=== PATIENT | male | born 1945 | race Caucasian/White ===

== ENCOUNTER 2016-07-13 10:51 | Day surgery (SDC) | payer OTHER ==
[2016-07-09 08:25] LABS: BASOPHILS 0.1 %; BASOPHILS ABSOLUTE 0.01 10/3/uL (0.0-0.16); EOSINOPHILS 2.9 %; EOSINOPHILS ABSOLUTE 0.22 10/3/uL (0.0-0.53); HEMATOCRIT 41.7 % (40.0-51.0); HEMOGLOBIN 13.7 g/dL (13.6-17.8); IMMATURE GRANULOCYTES 0.1 %; IMMATURE GRANULOCYTES ABSOLUTE 0.01 10/3/uL (0.0-0.11); LYMPHOCYTES 21.4 %; LYMPHOCYTES ABSOLUTE 1.62 10/3/uL (0.67-4.30); MEAN CORPUS HGB CONC 32.9 g/dL (32.0-36.0); MEAN CORPUSCULAR HEMOGLOB 30.6 pg (26.0-34.0); MEAN CORPUSCULAR VOLUME 93.1 fL (80-100); MEAN PLATELET VOLUME 12.2 fL (9.2-13.0); MONOCYTES 8.6 %; MONOCYTES ABSOLUTE 0.65 10/3/uL (0.21-1.20); NEUTROPHILS 66.9 %; NEUTROPHILS ABSOLUTE 5.06 10/3/uL (2.02-8.40); PLATELET COUNT 168 10/3/uL (150-400); RBC DISTRIBUTION WIDTH 14.4 % (12.0-16.0); RED CELL COUNT 4.48 10/6/uL (4.7-6.1); WHITE BLOOD CELLS 7.6 10/3/uL (4.5-10.5)
[2016-07-09 08:26] LABS: MANUAL DIFF NO %
[2016-07-09 08:40] LABS: BUN (BLOOD UREA NITROGEN) 23 MG/DL (6-23); CALCIUM, SERUM 8.3 MG/DL (8.5-10.4); CHLORIDE, SERUM 104 MMOL/L (96-112); CO2 (CARBON DIOXIDE) 30 MMOL/L (24-34); CREATININE 1.83 MG/DL (0.70-1.30); GFR AFRICAN AMERICAN 43 ML/MIN (>=60); GFR NON AFRICAN AMERICAN 37 ML/MIN (>=60); GLUCOSE, SERUM 109 MG/DL (60-99); POTASSIUM, SERUM 4.3 MMOL/L (3.5-5.3); SODIUM, SERUM 141 MMOL/L (135-148)
[2016-07-09 09:03] LABS: ASCORBIC ACID (UR NOT ORDER) NEG (NEG); BILIRUBIN, URINE NEGATIVE (NEG); KETONE, URINE NEGATIVE (NEG); LEUKOCYTE ESTERASE(NOT OR SMALL (NEG); WBC (NOT ORDERED) (RFLEX) 9 (0-5)
--- NOTE | ~2016-07-13 | OP ---
Record Of Operation [facility] [address] [place]. [address] NAME: RENA DILLON : 47 STATUS : [facility]#: [id number] AGE: 70 ADM/REG DATE : 07/13/16 MR#: [id number] REPORT SERV DATE: 07/14/16 DICTATED BY: MARCELL MOREIRA III DATE: 07/13/16 REPORT STATUS : Draft TRANSCRIBED BY: MODL DATE: 07/13/16 DATE OF PROCEDURE: 07/13/2016 PROCEDURE: Cystoscopy, dilatation of urethral stricture, and urethral biopsies. PREOPERATIVE DIAGNOSIS: Urethral stricture and squamous changes in the urethra. POSTOPERATIVE DIAGNOSIS: Urethral stricture and squamous changes in the urethra. ANESTHESIA: General. SURGEON: Marcell Moreira M.D. DESCRIPTION OF PROCEDURE: Following induction of adequate general anesthesia, the patient was placed in dorsal position, prepped and draped in a sterile fashion. The urethra was examined and was normal until I reached the bulbous urethra, which there was a circumferential layer of dense whitish plaque and a very small urethra. I was able to negotiate this with a ureteroscope. It was quite short and did not really involve the membranous urethra as best I could visualize it. The prostate was enlarged with an enlarged median lobe. The bladder was, on fluoro, very full with contrast from his recent CT chest study. I placed a wire and dilated the stricture up to 26 with [place] sounds. The scope was then placed, and the bladder was filled and inspected with both 30 and 70 degree lenses. No tumors were noted. There were some trabeculations from shallow cellules. With the bladder fully distended, it was hard to actually reach the dome, so was examined and is less than distended state. The papillary tumors were noted nor any stone seen. After examining the prostate with a 30 degree and 70 degree lens, I put in a 20-[place] sheath, did two biopsies of the urethra, and there was very little bleeding. Next, an 18-[place]ic [place] tip was placed in the bladder. Minimal bleeding was noted. 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 The patient will have a catheter with a leg bag and come to the office in 72 hours for catheter removal. The patient did have a CT chest to explain a right lung nodule and the study showed a small sclerotic area in the right fifth rib that accounted for the nodular density on the chest film. The lungs are clear. There was no evidence of malignancy. OB/MODL Marcell Moreira III, M.D. / [id number] CC: Marcell Moreira III, M.D. Record Of [address] [address] NAME: RENA DILLON : 47 STATUS : [facility] PAT#: [id number] AGE: 70 ADM/REG DATE : 07/13/16 MR#: [id number] REPORT SERV DATE: 07/14/16 DICTATED BY: MARCELL MOREIRA III DATE: 07/13/16 REPORT STATUS : Draft TRANSCRIBED BY: MODL DATE: 07/13/16 Addy Stark MD dc med
[~2016-07-13 10:51] MED LIST: FESO4 PO; L40 PO; LIPITOR10 PO; PRILO PO; PRIN10 PO; PROSCAR5 PO; ZINC220C PO
== END 2016-07-13 18:30 | disposition home or self-care (01) ==
LOC: SDC 10:51
PROVIDERS: Urology
PROC: 0T7D8ZZ Dilation of Urethra, Via Natural or Artificial Opening Endoscopic (ICD-10-PCS; 2016-07-13)
PROC: 0TBD8ZX Excision of Urethra, Via Natural or Artificial Opening Endoscopic, Diagnostic (ICD-10-PCS; principal; 2016-07-13 13:15)
DX: N35.9 Urethral stricture, unspecified (principal); L57.0 Actinic keratosis; I10 Essential (primary) hypertension; K21.9 Gastro-esophageal reflux disease without esophagitis; E78.00 Pure hypercholesterolemia, unspecified; N40.0 Benign prostatic hyperplasia without lower urinary tract symptoms; Z79.899 Other long term (current) drug therapy
CPT/HCPCS: 71020; 80048; 81001; 85025; 87077; 87086; 87186; 88305; 93005; C1758; C1769; J0330; J2405; J3010; Q9967